=== PATIENT | male | born 1970 | race Caucasian/White ===

== ENCOUNTER 2017-01-05 16:41 | Emergency (ER) | payer MEDICAID ==
[~2017-01-05] VITALS: Ht 170.2 cm; Wt 75.0 kg
[~2017-01-05 16:41] MED LIST: OMEP-110 PO
[2017-01-05 16:42] VITALS: BP 119/82
[2017-01-05] MEDS ORDERED: METHOCARBAMOL 750 MG TABLET ONE (17:09)
[2017-01-05] MEDS ORDERED: KETOROLAC 30 MG/1 ML ONE (17:09)
[2017-01-05] MEDS ORDERED: KETOROLAC 30 MG/1 ML IM ONE (17:30)
[2017-01-05] MEDS ORDERED: METHOCARBAMOL 750 MG TABLET PO ONE (17:30)
== END 2017-01-05 17:56 | disposition home or self-care (01) ==
LOC: ED 17:10
DX: S39.012A Strain of muscle, fascia and tendon of lower back, initial encounter (principal); G89.29 Other chronic pain; M51.16 Intervertebral disc disorders with radiculopathy, lumbar region; M54.41 Lumbago with sciatica, right side; K21.9 Gastro-esophageal reflux disease without esophagitis; X58.XXXA Exposure to other specified factors, initial encounter; Y93.89 Activity, other specified; Y92.89 Other specified places as the place of occurrence of the external cause; Y99.8 Other external cause status
CPT/HCPCS: 72110; 96372; 99284; J1885

== ENCOUNTER 2018-01-14 20:01 | Emergency (ER) | payer MEDICAID | END 2018-01-14 21:03 | disposition left against medical advice (07) | LOC: ED 20:57 | DX: H92.01 Otalgia, right ear (principal); Z53.21 Procedure and treatment not carried out due to patient leaving prior to being seen by health care provider ==

== ENCOUNTER 2018-01-16 10:07 | Emergency (ER) | payer MEDICAID ==
[~2018-01-16] VITALS: Ht 170.2 cm; Wt 63.5 kg
[2018-01-16 10:09] VITALS: BP 142/92
[2018-01-16] MEDS ORDERED: CARBAMIDE PEROXIDE EAR DROPS 6.5%, 15ML ONE (10:28)
[2018-01-16] MEDS ORDERED: CARBAMIDE PEROXIDE EAR DROPS 6.5%, 15ML EACH EAR ONE (10:30)
== END 2018-01-16 10:47 | disposition home or self-care (01) ==
LOC: ED 10:40
DX: H61.23 Impacted cerumen, bilateral (principal); H91.91 Unspecified hearing loss, right ear; K21.9 Gastro-esophageal reflux disease without esophagitis
CPT/HCPCS: 99282

== ENCOUNTER 2019-07-22 22:09 | Emergency (ER) | payer MEDICAID ==
[~2019-07-22] VITALS: Ht 172.7 cm; Wt 75.7 kg
[2019-07-22 22:20] VITALS: BP 109/68
== END 2019-07-22 23:53 | disposition home or self-care (01) ==
LOC: ED 23:47
DX: M25.561 Pain in right knee (principal); J45.909 Unspecified asthma, uncomplicated; K21.9 Gastro-esophageal reflux disease without esophagitis
CPT/HCPCS: 99283

== ENCOUNTER 2020-11-15 15:16 | Emergency (ER) | payer MEDICAID ==
[~2020-11-15] VITALS: Ht 170.2 cm; Wt 71.0 kg
--- NOTE | 2020-11-15 15:41 | NUR ---
CALLED FOR TRIAGE, NO ANSWER
[2020-11-15] MEDS ORDERED: PLEASE ENTER HEIGHT AND WEIGHT MC SCH (16:00)
[2020-11-15] MEDS ORDERED: CEFTRIAXONE 1,000 MG IM ONE (16:00)
[2020-11-15] MEDS ORDERED: AZITHROMYCIN 500 MG TABLET PO ONE (16:00)
[2020-11-15 16:39] LABS: MICROSCOPIC NOT IND
--- NOTE | 2020-11-15 17:23 | NUR ---
NOT IN LOBBY
--- NOTE | 2020-11-15 17:37 | NUR ---
NOT IN LOBBY
--- NOTE | 2020-11-15 17:52 | NUR ---
PT CHECKED IN WITH MT. NOW IN LOBBY. NO ROOM AVAILABLE.
[2020-11-15] MEDS ORDERED: CEFTRIAXONE 1,000 MG ONE (18:26)
[2020-11-15] MEDS ORDERED: AZITHROMYCIN 500 MG TABLET ONE (18:26)
[2020-11-15 18:43] VITALS: BP 133/79
== END 2020-11-15 19:52 | disposition home or self-care (01) ==
LOC: ED 19:15
DX: Z20.2 Contact with and (suspected) exposure to infections with a predominantly sexual mode of transmission (principal); K21.9 Gastro-esophageal reflux disease without esophagitis; F17.210 Nicotine dependence, cigarettes, uncomplicated
CPT/HCPCS: 81003; 87491; 87591; 96372; 99283; J0696